=== PATIENT | male | born 1955 | race Caucasian/White ===

== ENCOUNTER 2023-05-08 08:15 | Emergency (ER) | payer BC, MEDICARE ==
[~2023-05-08] VITALS: Ht 182.9 cm; Wt 90.7 kg
[2023-05-08 12:27] VITALS: BP 134/70
--- NOTE | 2023-05-09 06:45 | EKG ---
[facility] [address] [facility] [place], [place] [address] Signed Normal sinus rhythm No previous ECGs available Confirmed by MARGARITO TINOCO MD ([id number]) on 05/09/2023 6:45:21 AM Electronically Signed By: MARGARITO TINOCO 05/09/23 0645 PATIENT NAME: SIMONA MALONEY Electrocardiogram DATE OF : 55 PHYSICIAN: MARGARITO TINOCO REPORT #: [id number] REPORT IS CONFIDENTIAL AND NOT TO BE RELEASED WITHOUT AUTHORIZATION
== END 2023-05-08 12:29 | disposition short-term general hospital (02) ==
LOC: ED 08:15
DX: G93.9 Disorder of brain, unspecified (principal); I61.9 Nontraumatic intracerebral hemorrhage, unspecified; F03.90 Unspecified dementia, unspecified severity, without behavioral disturbance, psychotic disturbance, mood disturbance, and anxiety; Z20.822 Contact with and (suspected) exposure to COVID-19; Z87.891 Personal history of nicotine dependence
CPT/HCPCS: 36415; 51798; 70450; 71045; 80053; 81001; 85025; 85610; 87502; 93005; 93010; 99285-25; C9803; J1100; J1953; J2060; U0002